=== PATIENT | male | born 2000 | race Caucasian/White ===

== ENCOUNTER → 2019-10-29 | Outpatient (CLI) | payer OTHER | LOC: SJCVCIMAG 08:12 | DX: R07.89 Other chest pain (principal); R94.31 Abnormal electrocardiogram [ECG] [EKG]; I45.6 Pre-excitation syndrome; K21.9 Gastro-esophageal reflux disease without esophagitis; J45.909 Unspecified asthma, uncomplicated; Z79.899 Other long term (current) drug therapy ==

== ENCOUNTER → 2019-11-23 | Outpatient (CLI) | payer OTHER ==
[~2019-11-23] MED LIST: ASPIRIN325 PO; CLARITIN10 M2 PO; FLONASE 0.05%50 MCG NASAL; PEPCID20 MG PO; PROTONIX40 M3 PO
== END ==
LOC: LAB 08:00
PROVIDERS: ATTEND Internal Medicine Cardiovascular Disease
DX: Z01.818 Encounter for other preprocedural examination (principal); Z11.59 Encounter for screening for other viral diseases

== ENCOUNTER 2019-11-26 06:46 | Observation (INO) | payer OTHER ==
[~2019-11-26] VITALS: Ht 188 cm; Wt 71.7 kg
[2019-11-26] VITALS (10 sets, daily range): BP systolic 120–139; BP diastolic 74–93
--- NOTE | ~2019-11-26 | P ---
[facility] [place] [address] PROCEDURE REPORT Name: SHERRY ZEPEDA Room #: 208-P [facility] M.R.#: [id number] Admission: 11/26/19 Attend Phys: Jenaro Terrell MD Discharge: 11/27/19 Date of : [birth year] Report #: [id number] THIS REPORT FOR: cc: Jaylon Gallegos MD, Gregory A. MD Couchonnal, Luis F. MD ~ CC: Jaylon Terrell DATE OF SERVICE: 11/26/2019 SVT ABLATION PREOPERATIVE DIAGNOSIS: Rzccb-Aojbqsabe-Axsnh syndrome. POSTOPERATIVE DIAGNOSIS: Hhyfk-Jantqpkmt-Wnnpa with 2 accessory pathways. 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 PROCEDURES PERFORMED: 1. SVT ablation, CPT code 25631. 2. EP with left atrial pacing and recording, CPT code 75087. 3. Program stimulation pacing after IV drug infusion, CPT code 84171. 4. Intracardiac echo, CPT code 30447. 5. 3D mapping, CPT code 03535. 6. Second accessory pathway ablation, CPT code 29852. ANESTHESIA: The patient underwent MAC anesthesia with no anesthesia related complications. DESCRIPTION OF PROCEDURE: The patient underwent informed consent. We discussed the details of the procedure including the risks, which include but not limited to bleeding, vascular damage, stroke, ID as well as damage to the [place] conduction system requiring permanent pacemaker. He understood these risks and is willing to proceed. The patient was brought to EP laboratory in a fasting and sedated state and prepped and draped in a sterile fashion. I obtained access to the right femoral vein x 2 and the left femoral vein x 2 and I placed an 8 and 6-Syrian short sheath in the right femoral vein and in the left femoral vein, I placed a 6 and 7-Syrian short sheath. Additional line was also placed in anticipation of needing intracardiac ultrasound. Next, I placed 3 quadripolar catheters at the HRA, His and RV position and decapolar catheter into the coronary sinus for left atrial pacing and recording. I started by pacing the ventricle and this showed [facility] [address] [place] [address] PROCEDURE REPORT Name: SHERRY ZEPEDA Room #: 208-P [facility] Liliane M.R.#: [id number] Admission: 11/26/19 Attend Phys: Jenaro Terrell MD Discharge: 11/27/19 Date of : 98 Report #: [id number] that the patient had eccentric atrial activation suggestive of a left lateral accessory pathway. Next, antegrade pacing was performed and with atrial pacing, there was evidence of antegrade conduction via the pathway as well. The antegrade QRS morphology was right bundle branch block, positive concordance and positive in leads II, III and aVF, also suggestive of a left-sided pathway. At baseline, the patient was in sinus rhythm with sinus cycle length of 780 milliseconds, HI interval 110 milliseconds, QRS duration of 148 milliseconds, QT interval 384 milliseconds, AH interval of 90 milliseconds and an HV interval of 0 milliseconds. Next, I performed atrial pacing and AV block via the accessory pathway was less than 250 milliseconds and in fact, during my first pacing train, the patient went into atrial fibrillation, which continued for 5 minutes and then spontaneously terminated. There were not any excessively short VV intervals while in atrial fibrillation, but antegrade conduction via the pathway was very rapid and potentially could be a cause of sudden cardiac . Next, a single atrial extrastimuli were delivered in accessory pathway effective refractory period was 240 milliseconds at a [address] cycle length. Again, ventricular pacing was performed and the earliest atrial signal was at CS 1-2. Next, with single atrial extrastimuli, the patient went into SVT with a left bundle branch block morphology and then this narrowed again with the earliest activation at CS 1-2 and a tachycardia cycle length of 300 milliseconds. This again degenerated on its own to atrial flutter and then acutely terminated. As such, there was evidence of inducible SVT and evidence of an accessory pathway with antegrade conduction properties that make this potentially high risk for sudden cardiac . Therefore, the patient was prepared for transseptal. An intracardiac ultrasound catheter was placed in the right atrium. The patient was systemically heparinized and using an SL1 sheath and a [place] needle, a transseptal was performed without issue. Next, a SmartTouch ThermoCool ablation catheter was placed into the left atrium. Next, I started by mapping the earliest A, but also was looking for the potentials in sinus rhythm. This occasionally appeared to be somewhat confusing as with ventricular pacing, I would be at an early site, but then when there was an ectopic beat, it would almost appeared in that antegrade conduction was not early at this site. Therefore, I started to suspect that maybe we had 2 accessory pathways, but at this point, I was not entirely sure of this either. Therefore, I performed mapping and it appeared that there was an early site around 2 or 3 o'clock along the mitral annulus. Ablation while pacing the V did not show that we lost the pathway. I therefore performed additional mapping in sinus rhythm as we did have manifest preexcitation and in this area, there appeared to be in an interesting signal. Therefore, I decided to perform ablation here. With ventricular pacing at this site, the V and A appeared to be essentially fused. Therefore, I performed ablation at this site in sinus rhythm and we did not lose the delta wave. So I thought I had not gotten the pathway, but then when I came on with ventricular pacing, there was now clearly concentric VA conduction. Therefore, it appeared that we had eliminated one of the pathways at around 2 or [facility] [address] [place] [address] PROCEDURE REPORT Name: SHERRY ZEPEDA Room #: 208-P [facility]..#: [id number] Admission: 11/26/19 Attend Phys: Jenaro Terrell MD Discharge: 11/27/19 Date of : 98 Report #: [id number] 3 o'clock along the mitral annulus. I therefore started hunting for the second pathway as this one did not appear to have retrograde conduction properties and I had to map it antegrade looking for the earliest V signal. Unlike the first pathway, this was much more challenging. I actually switched from an SL1 sheath to an Agilis to get better reach to look for ventricular signals and I performed multiple ablation lesions at around 12 o'clock along the tricuspid annulus, but this was not resulting in termination and I did not have a great atrial and ventricular fusion at this site. Using intracardiac ultrasound, I tried to find my location on the mitral annulus and eventually my catheter fell at around 11 o'clock and there was a nice atrial and ventricular fused complex and I bump terminated the pathway. We therefore performed ablation at this site. Around 40 bueno, I performed a total of 5 ablation lesions at this site, each of a minute's duration to ensure that we got rid of this pathway. POST-ABLATION TESTING: Post-ablation, the patient was started on isoproterenol and aggressive atrial pacing was performed. AV block was now less than 240 milliseconds. AV neeta ERP was noted at 270 milliseconds at a [address] cycle length. There was no evidence of manifest preexcitation. Next, isoproterenol was turned off and aggressive pacing was performed and AV block was noted at 260 milliseconds. The patient did go into atrial fibrillation with my aggressive atrial pacing, but converted to sinus rhythm after about 5 minutes. Post-ablation, the patient was in sinus rhythm with a sinus cycle length of 610 milliseconds, HI interval 142 milliseconds, QRS duration 99 milliseconds, QT interval 358 milliseconds. As such, all catheters and sheaths were pulled. Hemostasis was obtained after receiving protamine. The patient awoke neurologically and hemodynamically intact. CONCLUSIONS: 1. Successful ablation of an accessory pathway located at 2-3 o'clock along the mitral annulus. 2. Successful ablation of an antegrade only conducting pathway located at 11 o'clock on the mitral annulus, which was harder to ablate given its location. 3. Normal SA neeta function. 4. Normal AV neeta function. 5. Normal His-Purkinje function. 6. No other inducible arrhythmias on or off isoproterenol. 7. Evidence of atrial fibrillation, likely due to the accessory pathway, which converted on its own. By: [id number] Jenaro Terrell MD /nt
[2019-11-26] MEDS ORDERED: PEPCID20 MG PO (07:36)
[2019-11-26] MEDS ORDERED: FLONASE 0.05%50 MCG NASAL ×2 (07:37→07:42)
[2019-11-26] MEDS ORDERED: CLARITIN10 M2 PO (07:38)
[2019-11-26] MEDS ORDERED: PROTONIX40 M3 PO (07:41)
[2019-11-26 07:46] LABS: ABSOLUTE NEUTROPHILS 4.3 thou/uL (1.4-8.2); BASOPHILS 0.4 % (0.0-2.0); HEMATOCRIT 46.2 % (42.0-52.0); HEMOGLOBIN 15.4 gm/dL (14.0-18.0); LYMPHOCYTES 29.1 % (24.0-44.0); MCH 30.9 pg (26.0-34.0); MCHC 33.3 g/dL (28.0-37.0); MCV 92.7 fL (80.0-100.0); MONOCYTES 8.1 % (1.0-8.0); POLYS 60.4 % (36.0-66.0); RBC 4.99 mil/uL (4.50-6.00); RDW 12.7 % (10.5-14.5); WBC 7.1 thou/uL (4.0-11.0)
[2019-11-26 07:55] LABS: APTT 34.5 Seconds (24.5-32.8); INR 1.1; PROTIME 11.2 Seconds (9.3-11.4)
[2019-11-26 07:57] LABS: CALCIUM 9.4 mg/dL (8.5-10.1); POTASSIUM 3.1 mmol/L (3.5-5.1)
[2019-11-26 08:03] LABS: ALBUMIN 4.5 g/dL (3.4-5.0); TOTAL BILIRUBIN 1.2 mg/dL (0.2-1.0); TOTAL PROTEIN 7.9 g/dL (6.4-8.2)
[2019-11-26 09:11] LABS: PLATELET COUNT 165 thou/uL (150-400); PLATELET ESTIMATE NORMAL
[2019-11-26] MEDS ORDERED: ASPIRIN325 PO (16:05)
--- NOTE | 2019-11-26 19:10 | NUR ---
PT CARE ASSUMED AT 1320. ASSESSMENTS CHARTED. MEDICATION CHARTED. 4 FEMORAL VENOUS ; 3 RT, 1 LT. HEMOSTASIS AT 1320; OFF BEDREST AT 1920. VSS. PT DENIES PAIN.
[2019-11-27] VITALS: BP 124/76
[2019-11-27 00:30] VITALS: BP 120/76
[2019-11-27 04:26] VITALS: BP 127/84
--- NOTE | 2019-11-27 06:41 | NUR ---
ASSUMED PT CARE AT 1900, PT IS AWAKE, ALERT AND ORIENTEDX4, PLEASANT, PATIENT ASSESSMENTS CHARTED, PT STARTED BEING SINUS ADA AT AROUND MIDNIGHT, PT IS ASYMPTOMATIC, VS REMAINED STABLE, DENIES CHEST PAIN OR SHORTNESS OF AIR, PATIENT OFF BEDREST AND AMBULATED IN THE ROOM, DENIES DIZZINESS OR LIGHTHEADEDNESS, GROIN SITES WITH DRY BLOOD, NO HEMATOMA NOTED, WILL PASS ON REPORT
[2019-11-27 07:55] VITALS: BP 121/85
[2019-11-27 08:20] VITALS: BP 121/85
[2019-11-27 09:47] VITALS: BP 121/85
--- NOTE | 2019-11-27 10:28 | NUR ---
PT CARE ASSUMED AT 0700. ASSESSMENT CHARTED. MEDICATION CHARTED. PT DISCHARGED TO HOME AT 1015. PT SEEN BY CONSTANTINE AND DR HIDALGO. TELEMETRY D/C'D. IV D/C'D.
== END 2019-11-27 10:29 | disposition home or self-care (01) ==
LOC: CATH 06:46 → 2N 14:58
PROVIDERS: ADMIT Internal Medicine Cardiovascular Disease; ATTEND Internal Medicine Cardiovascular Disease
DX: I45.6 Pre-excitation syndrome (principal); I47.1 Supraventricular tachycardia
CPT/HCPCS: 62110; 62900; 70005